=== PATIENT | female | born 2000 | race Caucasian/White ===

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

== ENCOUNTER 2022-05-24 12:15 | Emergency (ER) | payer MEDICAID ==
[2022-05-24 12:28] VITALS: BP 105/75
[2022-05-24] MEDS ORDERED: AMOXICILLIN AND1 TA2 PO (12:42)
== END 2022-05-24 12:57 | disposition home or self-care (01) ==
LOC: ED 12:15
DX: K08.89 Other specified disorders of teeth and supporting structures (principal); H92.02 Otalgia, left ear; Z88.6 Allergy status to analgesic agent; Z28.310 Unvaccinated for COVID-19